=== PATIENT | male | born 1940 | race Caucasian/White ===

== ENCOUNTER → 2017-05-14 | Outpatient (CLI) | payer MEDICARE ==
[~2017-05-14] MED LIST: REGADENOSON 0.4 MG/5 ML SYRINGE ONE
== END | disposition home or self-care (01) ==
LOC: CFH 08:03 → EDSTATUS 10:30
PROVIDERS: ATTEND Surgery
DX: I21.19 ST elevation (STEMI) myocardial infarction involving other coronary artery of inferior wall (principal); I25.9 Chronic ischemic heart disease, unspecified; I25.810 Atherosclerosis of coronary artery bypass graft(s) without angina pectoris
CPT/HCPCS: 78452; 93017; A9502; J2785

== ENCOUNTER → 2017-05-24 | Outpatient (CLI) | payer MEDICARE ==
[~2017-05-24] MED LIST changes: +AMLO5TAB2 PO; +AMLODIPINE PO; +ASCO10004 PO; +ASPI-496 PO; +CHOL20002 PO; +CLOP75TA22 PO; +CRESTOR PO; +ESOM40CA PO; +ESZO3TAB9 PO; +ESZOPICLONE PO; +FLUT1DIS3 INH; +GUAI-44 PO; +IPRA4AER PO; +METO25TA35 PO; +METOPROLOL TARTRATE PO; +MULT-412 PO; +OMEG1CAP56 PO; +OTC LAXATIVE PO; +PLAVIX PO; -REGADENOSON 0.4 MG/5 ML SYRINGE ONE; +ROSU5TAB PO; +[UNRECOGNIZED DRUG - OTHER]; +[UNRECOGNIZED DRUG - OTHER] NS
[2017-05-24 13:44] LABS: BLOOD UREA NITROGEN 8 mg/dL (7-18)
== END | disposition home or self-care (01) ==
LOC: STAR 11:55
PROVIDERS: ATTEND Surgery
DX: Z01.810 Encounter for preprocedural cardiovascular examination (principal); I73.9 Peripheral vascular disease, unspecified
CPT/HCPCS: 36415; 80048; 85025; 93005

== ENCOUNTER 2017-05-28 09:24 | Inpatient (IN) | payer MEDICARE ==
[2017-05-24 12:45] VITALS: BP 148/97
[~2017-05-28] VITALS: Ht 175.3 cm; Wt 86.1 kg
[~2017-05-28 09:24] MED LIST changes: +BACITRACIN 50,000 UNIT ONE; +BUPIVACAINE/PF-EPI 0.5% 1:200K ONE; +HEPARIN 1,000 UNITS/ML, 10ML ONE; -METO25TA35 PO; +PAPAVERINE 30 MG/ML, 2ML ONE; +PROTAMINE SULFATE 10 MG/ML, 5ML ONE; +THROMBIN 20,000 UNIT VIAL TP ONE
[2017-05-28] MEDS ORDERED: CEFAZOLIN PMX 2GM/50ML 50 ML IV ONE (10:15)
[2017-05-28] MEDS ORDERED: LACTATED RINGERS 1,000 ML IV SCH (10:28)
[2017-05-28] MEDS ORDERED: METO25TA35 PO (10:44)
[2017-05-28] MEDS ORDERED: FENTANYL PF 250 MCG/5ML ONE (11:43)
[2017-05-28] MEDS ORDERED: MIDAZOLAM 1 MG/ML, 2ML ONE (11:43)
[2017-05-28] MEDS ORDERED: CEFAZOLIN 1,000 MG ONE (11:58)
[2017-05-28] MEDS ORDERED: ONDANSETRON 2MG/ML, 2ML ONE (11:58)
[2017-05-28] MEDS ORDERED: DEXAMETHASONE 4 MG/ML, 1ML ONE (11:58)
[2017-05-28] MEDS ORDERED: PROPOFOL 10 MG/ML, 20ML ONE (11:58)
[2017-05-28] MEDS ORDERED: VISIPAQUE 270 MG/ML, 50ML BOTTLE ONE (13:12)
[2017-05-28] MEDS ORDERED: ALBUTEROL SULFATE 2.5 MG/3 ML NPPB PRN (13:30)
[2017-05-28] MEDS ORDERED: HYDROcodone/APAP 7.5-325MG/15ML UDC PO PRN (13:30)
[2017-05-28] MEDS ORDERED: EPHEDRINE 50 MG/ML, 1ML IVPush PRN (13:30)
[2017-05-28] MEDS ORDERED: MEPERIDINE/PF 25MG/0.5ML IVPush PRN (13:30)
[2017-05-28] MEDS ORDERED: ACETAMINOPHEN 325 MG TABLET PO PRN ×2 (13:30→17:30)
[2017-05-28] MEDS ORDERED: hydrALAzine 20 MG/ML, 1ML IV PRN ×2 (13:30→17:00)
[2017-05-28] MEDS ORDERED: ALBUTEROL/IPRATROPIUM 2.5MG/0.5MG, 3 ML NPPB PRN (13:30)
[2017-05-28] MEDS ORDERED: ONDANSETRON 2MG/ML, 2ML IVPush PRN (13:30)
[2017-05-28] MEDS ORDERED: METOPROLOL 1 MG/ML, 5ML IV PRN (13:30)
[2017-05-28] MEDS ORDERED: HYDROmorphone 1 MG/ML, 1ML IV PRN (13:30)
[2017-05-28] MEDS ORDERED: OXYcodone 5 MG/5 ML ORAL.SOL UDC PO PRN (13:30)
[2017-05-28] MEDS ORDERED: LABETALOL 5MG/ML, 20ML IV PRN ×2 (13:30→17:00)
[2017-05-28] MEDS ORDERED: PROMETHAZINE 25 MG/ML, 1ML IV PRN (13:30)
[2017-05-28] MEDS ORDERED: FENTANYL PF 100 MCG/2ML IV PRN (13:30)
[2017-05-28] MEDS ORDERED: PROMETHAZINE 25 MG/ML, 1ML ONE (15:40)
[2017-05-28] MEDS ORDERED: HYDROcodone/APAP 7.5-325MG/15ML UDC ONE (15:40)
[2017-05-28 17:01] VITALS: BP 109/69
[2017-05-28] MEDS ORDERED: MORPHINE SULFATE 4 MG/ML, 1ML IVPush PRN (17:30)
[2017-05-28] MEDS ORDERED: ONDANSETRON 2MG/ML, 2ML IV PRN (17:30)
[2017-05-28] MEDS ORDERED: HYDROcodone/APAP 5/325 TABLET PO PRN (17:30)
[2017-05-28] MEDS: METOPROLOL TARTRATE 25 MG TABLET PO SCH (18:00)
[2017-05-28] MEDS: SODIUM CHLORIDE 0.9% 1,000 ML IV SCH (18:43)
[2017-05-28] MEDS: ATORVASTATIN 10 MG TABLET PO SCH (20:09)
[2017-05-28] MEDS: ENOXAPARIN 40 MG/0.4 ML SQ SCH (20:09)
[2017-05-28] MEDS: CEFAZOLIN PMX 2GM/100ML 100 ML IVPB SCH (20:09)
[2017-05-28 20:33] VITALS: BP 116/75
[2017-05-28 23:37] VITALS: BP 118/70
[2017-05-29 01:25] VITALS: BP 115/68
[2017-05-29] MEDS: SODIUM CHLORIDE 0.9% 1,000 ML IV SCH (03:00)
[2017-05-29 03:32] VITALS: BP 115/69
[2017-05-29] MEDS: METOPROLOL TARTRATE 25 MG TABLET PO SCH ×2 (03:58→17:33)
[2017-05-29] MEDS: ASPIRIN 81 MG TABLET EC PO SCH (03:58)
[2017-05-29] MEDS: CEFAZOLIN PMX 2GM/100ML 100 ML IVPB SCH (03:58)
[2017-05-29 05:55] LABS: BLOOD UREA NITROGEN 8 mg/dL (7-18)
[2017-05-29 05:58] LABS: HEMATOCRIT 35.8 % (39.2-51.8)
[2017-05-29 08:13] VITALS: BP 114/57
[2017-05-29] MEDS: MULTIVITAMIN 1 TABLET PO SCH (09:07)
[2017-05-29] MEDS: AMLODIPINE 5 MG TABLET PO SCH (09:07)
[2017-05-29] MEDS: FLUTICASONE/VILANTEROL 100-25MCG/INH INH SCH (09:07)
[2017-05-29] MEDS: OMEGA-3/FISH OIL CAPSULE PO SCH (09:07)
[2017-05-29] MEDS: CLOPIDOGREL 75 MG TABLET PO SCH (09:07)
[2017-05-29] MEDS: ASCORBIC ACID 500 MG TABLET PO SCH (09:08)
[2017-05-29] MEDS: CHOLECALCIFEROL 1,000 UNIT TABLET PO SCH (09:08)
[2017-05-29] MEDS ORDERED: SODIUM CHLORIDE FLUSH 10ML SYR IVF PRN (09:30)
[2017-05-29] MEDS: AMPICILLIN/SULBACTAM 3 GM in SODIUM CHLORIDE 0.9% 100 ML IV SCH ×3 (11:04→21:49)
[2017-05-29 13:41] VITALS: BP 100/70
[2017-05-29] MEDS ORDERED: ALBUTEROL/IPRATROPIUM 2.5MG/0.5MG, 3 ML NPPB SCH (18:30)
[2017-05-29 19:20] VITALS: BP 109/73
[2017-05-29] MEDS: LUNESTA 3 MG HOMEMEDPO SCH ×2 (20:55→22:00)
[2017-05-29] MEDS: ENOXAPARIN 40 MG/0.4 ML SQ SCH (20:55)
[2017-05-29] MEDS: [UNRECOGNIZED DRUG - OTHER] INH SCH (20:55)
[2017-05-29] MEDS: ATORVASTATIN 10 MG TABLET PO SCH (20:55)
[2017-05-30 02:02] VITALS: BP 111/74
[2017-05-30] MEDS: AMPICILLIN/SULBACTAM 3 GM in SODIUM CHLORIDE 0.9% 100 ML IV SCH ×4 (03:47→22:00)
[2017-05-30 05:35] LABS: HEMATOCRIT 34.6 % (39.2-51.8); HEMOGLOBIN 11.4 g/dL (13.7-18.0); WHITE BLOOD COUNT 7.4 x10^3/uL (3.4-10)
[2017-05-30] MEDS: [UNRECOGNIZED DRUG - OTHER] INH SCH ×4 (06:00→20:28)
[2017-05-30 06:23] VITALS: BP 116/76
[2017-05-30] MEDS: METOPROLOL TARTRATE 25 MG TABLET PO SCH ×2 (06:25→18:12)
[2017-05-30] MEDS: ASPIRIN 81 MG TABLET EC PO SCH (06:25)
[2017-05-30 08:00] VITALS: BP 120/74
[2017-05-30] MEDS: OMEGA-3/FISH OIL CAPSULE PO SCH (09:00)
[2017-05-30] MEDS ORDERED: COMBIVENT INH SCH (09:00)
[2017-05-30] MEDS: MULTIVITAMIN 1 TABLET PO SCH (09:12)
[2017-05-30] MEDS: AMLODIPINE 5 MG TABLET PO SCH (09:12)
[2017-05-30] MEDS: FLUTICASONE/VILANTEROL 100-25MCG/INH INH SCH (09:12)
[2017-05-30] MEDS: CLOPIDOGREL 75 MG TABLET PO SCH (09:12)
[2017-05-30] MEDS: ASCORBIC ACID 500 MG TABLET PO SCH (09:13)
[2017-05-30] MEDS: CHOLECALCIFEROL 1,000 UNIT TABLET PO SCH (09:14)
[2017-05-30 12:40] VITALS: BP 118/74
[2017-05-30 19:37] VITALS: BP 138/87
[2017-05-30] MEDS: ATORVASTATIN 10 MG TABLET PO SCH (20:28)
[2017-05-30] MEDS: ENOXAPARIN 40 MG/0.4 ML SQ SCH (20:28)
[2017-05-30] MEDS: LUNESTA 3 MG HOMEMEDPO SCH (23:26)
[2017-05-31 01:43] VITALS: BP 115/76
[2017-05-31] MEDS: AMPICILLIN/SULBACTAM 3 GM in SODIUM CHLORIDE 0.9% 100 ML IV SCH ×2 (03:30→08:43)
[2017-05-31] MEDS: [UNRECOGNIZED DRUG - OTHER] INH SCH (06:00)
[2017-05-31] MEDS: ASPIRIN 81 MG TABLET EC PO SCH (06:18)
[2017-05-31 06:19] VITALS: BP 110/74
[2017-05-31] MEDS: METOPROLOL TARTRATE 25 MG TABLET PO SCH (06:19)
[2017-05-31 08:35] VITALS: BP 106/60
[2017-05-31] MEDS: FLUTICASONE/VILANTEROL 100-25MCG/INH INH SCH (08:39)
[2017-05-31] MEDS: OMEGA-3/FISH OIL CAPSULE PO SCH (08:39)
[2017-05-31] MEDS: AMLODIPINE 5 MG TABLET PO SCH (08:40)
[2017-05-31] MEDS: MULTIVITAMIN 1 TABLET PO SCH (08:40)
[2017-05-31] MEDS: ASCORBIC ACID 500 MG TABLET PO SCH (08:40)
[2017-05-31] MEDS: CHOLECALCIFEROL 1,000 UNIT TABLET PO SCH (08:40)
[2017-05-31] MEDS: CLOPIDOGREL 75 MG TABLET PO SCH (08:40)
[2017-05-31] MEDS ORDERED: HYDR-3240 PO (09:54)
[2017-05-31] MEDS ORDERED: SENN-25 PO (09:54)
== END 2017-05-31 10:24 | disposition home or self-care (01) | DRG 253 ==
LOC: ORIP 09:24 → 4NOR 16:50 → DCLOUNGE 05-31 09:57
PROVIDERS: ADMIT Surgery; ATTEND Surgery
PROC: 04UL0KZ Supplement Left Femoral Artery with Nonautologous Tissue Substitute, Open Approach (ICD-10-PCS; 2017-05-28)
PROC: B41G1ZZ Fluoroscopy of Left Lower Extremity Arteries using Low Osmolar Contrast (ICD-10-PCS; 2017-05-28)
PROC: 047L3Z1 Dilation of Left Femoral Artery using Drug-Coated Balloon, Percutaneous Approach (ICD-10-PCS; 2017-05-28)
PROC: 047N3Z1 Dilation of Left Popliteal Artery using Drug-Coated Balloon, Percutaneous Approach (ICD-10-PCS; 2017-05-28)
PROC: 04CL0ZZ Extirpation of Matter from Left Femoral Artery, Open Approach (ICD-10-PCS; principal; 2017-05-28 11:30)
DX: I70.212 Atherosclerosis of native arteries of extremities with intermittent claudication, left leg (principal); T82.858A Stenosis of other vascular prosthetic devices, implants and grafts, initial encounter; Y83.2 Surgical operation with anastomosis, bypass or graft as the cause of abnormal reaction of the patient, or of later complication, without mention of misadventure at the time of the procedure; E78.5 Hyperlipidemia, unspecified; I10 Essential (primary) hypertension; I25.10 Atherosclerotic heart disease of native coronary artery without angina pectoris; K43.9 Ventral hernia without obstruction or gangrene; I71.4 Abdominal aortic aneurysm, without rupture; Z96.89 Presence of other specified functional implants; Y83.8 Other surgical procedures as the cause of abnormal reaction of the patient, or of later complication, without mention of misadventure at the time of the procedure; Y92.89 Other specified places as the place of occurrence of the external cause; Z87.891 Personal history of nicotine dependence
CPT/HCPCS: 36415; 37224; 75710; 80048; 82040; 85025; C1725; C1729; J0295; J0690; J1100; J1644; J1650; J2250; J2405; J2550; J2704; J2720; J3010; Q9966; C1751; C1760; C1768; C1769; C1894; C2623; J2440; J7030; J7120

== ENCOUNTER 2017-12-07 07:20 | Day surgery (SDC) | payer MEDICARE ==
[~2017-12-07] VITALS: Ht 172.7 cm; Wt 86.0 kg
[~2017-12-07 07:20] MED LIST changes: -BACITRACIN 50,000 UNIT ONE; -BUPIVACAINE/PF-EPI 0.5% 1:200K ONE; -CLOP75TA22 PO; +CLOP75TA52 PO; +ESZO3TAB28 PO; -ESZO3TAB9 PO; +GUAI-106 PO; -GUAI-44 PO; -HEPARIN 1,000 UNITS/ML, 10ML ONE; +HYDR-3240 PO; +METO25TA35 PO; +OMEG-172 PO; -OMEG1CAP56 PO; -PAPAVERINE 30 MG/ML, 2ML ONE; -PROTAMINE SULFATE 10 MG/ML, 5ML ONE; +SENN-25 PO; -THROMBIN 20,000 UNIT VIAL TP ONE; +TIOT4MIS3 PO
[2017-12-07] MEDS ORDERED: LACTATED RINGERS 1,000 ML IV SCH (07:48)
[2017-12-07 08:06] VITALS: BP 122/75
[2017-12-07] MEDS ORDERED: PROPOFOL 10 MG/ML, 20ML ONE (09:33)
[2017-12-07] MEDS ORDERED: MIDAZOLAM 1 MG/ML, 2ML ONE (09:34)
[2017-12-07] MEDS ORDERED: ROCURONIUM 10 MG/ML,10ML ONE (09:34)
[2017-12-07] MEDS ORDERED: FENTANYL PF 250 MCG/5ML ONE (09:34)
[2017-12-07] MEDS ORDERED: ONDANSETRON 2MG/ML, 2ML ONE (09:41)
[2017-12-07] MEDS ORDERED: PHENYLEPHRINE 10 MG/ML ONE (10:07)
[2017-12-07] MEDS ORDERED: DEXAMETHASONE 4 MG/ML, 1ML ONE ×2 (10:09)
[2017-12-07] MEDS ORDERED: NEOSTIGMINE 1 MG/ML, 10ML ONE (10:35)
[2017-12-07] MEDS ORDERED: GLYCOPYRROLATE 0.2MG/1ML, 5ML ONE (10:35)
[2017-12-07] MEDS ORDERED: FENTANYL PF 100 MCG/2ML IV PRN (11:00)
[2017-12-07] MEDS ORDERED: MEPERIDINE/PF 25MG/0.5ML IVPush PRN (11:00)
[2017-12-07] MEDS ORDERED: OXYcodone 5 MG/5 ML ORAL.SOL UDC PO PRN (11:00)
[2017-12-07] MEDS ORDERED: ACETAMINOPHEN 325 MG TABLET PO PRN (11:00)
[2017-12-07] MEDS ORDERED: HYDROcodone/APAP 7.5-325MG/15ML UDC PO PRN (11:00)
[2017-12-07] MEDS ORDERED: morphine SULFATE 10 MG/ML, 1ML IV PRN (11:00)
[2017-12-07] MEDS ORDERED: ONDANSETRON 2MG/ML, 2ML IVPush PRN (11:00)
== END 2017-12-07 13:30 ==
LOC: OUT 07:20
PROVIDERS: ATTEND Internal Medicine
DX: C34.12 Malignant neoplasm of upper lobe, left bronchus or lung (principal); J44.9 Chronic obstructive pulmonary disease, unspecified; Z87.39 Personal history of other diseases of the musculoskeletal system and connective tissue; I25.2 Old myocardial infarction
CPT/HCPCS: 31625; 31627; 31629; 71045; 76001; 88112; 88172; 88173; 88305; 93005; A4648; J1100; J2250; J2370; J2405; J2704; J2710; J3010; J7120; 31623; 31628; J3490

== ENCOUNTER → 2017-12-12 | Outpatient (CLI) | payer MEDICARE | END | disposition home or self-care (01) | LOC: PETCFH 07:27 | PROVIDERS: ATTEND Nurse Practitioner | DX: R91.8 Other nonspecific abnormal finding of lung field (principal); C34.90 Malignant neoplasm of unspecified part of unspecified bronchus or lung | CPT/HCPCS: 70553; 78815; A9552 ==

== ENCOUNTER → 2017-12-19 | Outpatient (CLI) | payer MEDICARE | LOC: ROC 08:33 | PROVIDERS: ATTEND Radiology Radiation Oncology | DX: C34.12 Malignant neoplasm of upper lobe, left bronchus or lung (principal); I10 Essential (primary) hypertension; J44.9 Chronic obstructive pulmonary disease, unspecified; Z86.79 Personal history of other diseases of the circulatory system; Z87.891 Personal history of nicotine dependence | CPT/HCPCS: 99214; G0463 ==

== ENCOUNTER → 2018-04-08 | Outpatient (CLI) | payer MEDICARE | END | disposition home or self-care (01) | LOC: CFH 11:56 | PROVIDERS: ATTEND Radiology Radiation Oncology | DX: C34.12 Malignant neoplasm of upper lobe, left bronchus or lung (principal) | CPT/HCPCS: 71250 ==

== ENCOUNTER → 2018-04-10 | Outpatient (CLI) | payer MEDICARE, OTHER | END | disposition home or self-care (01) | LOC: ROC 09:22 | PROVIDERS: ATTEND Radiology Radiation Oncology | DX: C34.12 Malignant neoplasm of upper lobe, left bronchus or lung (principal) | CPT/HCPCS: G0463 ==

== ENCOUNTER → 2018-04-25 | Outpatient (CLI) | payer MEDICARE | END | disposition home or self-care (01) | LOC: CVU 14:15 | PROVIDERS: ATTEND Surgery | DX: I70.201 Unspecified atherosclerosis of native arteries of extremities, right leg (principal); C34.91 Malignant neoplasm of unspecified part of right bronchus or lung; E78.5 Hyperlipidemia, unspecified; I10 Essential (primary) hypertension; I77.1 Stricture of artery; I70.302 Unspecified atherosclerosis of unspecified type of bypass graft(s) of the extremities, left leg | CPT/HCPCS: 93922; 93925 ==

== ENCOUNTER → 2018-06-28 | Outpatient (CLI) | payer MEDICARE ==
[~2018-06-28] MED LIST changes: -AMLO5TAB2 PO; +AMLO5TAB7 PO; -CHOL20002 PO; +CHOL200052 PO; +OMNIPAQUE 350 MG/ML, 100ML BOTTLE ONE
== END | disposition home or self-care (01) ==
LOC: CFH 09:24
PROVIDERS: ATTEND Internal Medicine Hematology & Oncology
DX: J43.8 Other emphysema (principal); J47.9 Bronchiectasis, uncomplicated; Z95.1 Presence of aortocoronary bypass graft
CPT/HCPCS: 71260; 74177; Q9967

== ENCOUNTER → 2018-07-04 | Outpatient (CLI) | payer MEDICARE ==
[~2018-07-04] MED LIST changes: -OMNIPAQUE 350 MG/ML, 100ML BOTTLE ONE
== END | disposition home or self-care (01) ==
LOC: ROC 08:42
PROVIDERS: ATTEND Internal Medicine Geriatric Medicine
DX: C34.12 Malignant neoplasm of upper lobe, left bronchus or lung (principal); J44.9 Chronic obstructive pulmonary disease, unspecified; Z87.891 Personal history of nicotine dependence
CPT/HCPCS: G0463

== ENCOUNTER → 2018-10-28 | Outpatient (CLI) | payer MEDICARE ==
[~2018-10-28] MED LIST changes: +AMLO-150 PO; -AMLO5TAB7 PO; +OMNIPAQUE 350 MG/ML, 100ML BOTTLE ONE
== END | disposition home or self-care (01) ==
LOC: CFH 11:56
PROVIDERS: ATTEND Internal Medicine Hematology & Oncology
DX: C34.12 Malignant neoplasm of upper lobe, left bronchus or lung (principal); J94.8 Other specified pleural conditions; J98.4 Other disorders of lung; J98.19 Other pulmonary collapse; J84.10 Pulmonary fibrosis, unspecified; J98.11 Atelectasis; N13.30 Unspecified hydronephrosis; R59.9 Enlarged lymph nodes, unspecified; K57.30 Diverticulosis of large intestine without perforation or abscess without bleeding; Z77.090 Contact with and (suspected) exposure to asbestos
CPT/HCPCS: 71260; 74177; 82565; Q9967

== ENCOUNTER → 2018-11-08 | Outpatient (CLI) | payer MEDICARE ==
[~2018-11-08] MED LIST changes: -OMNIPAQUE 350 MG/ML, 100ML BOTTLE ONE
== END | disposition home or self-care (01) ==
LOC: ROC 07:19
PROVIDERS: ATTEND Radiology Radiation Oncology
DX: Z08 Encounter for follow-up examination after completed treatment for malignant neoplasm (principal); C34.12 Malignant neoplasm of upper lobe, left bronchus or lung
CPT/HCPCS: G0463

== ENCOUNTER → 2019-03-04 | Outpatient (CLI) | payer MEDICARE ==
[~2019-03-04] MED LIST changes: +OMNIPAQUE 350 MG/ML, 100ML BOTTLE ONE
== END | disposition home or self-care (01) ==
LOC: CFH 09:27
PROVIDERS: ATTEND Radiology Radiation Oncology
DX: C34.90 Malignant neoplasm of unspecified part of unspecified bronchus or lung (principal); K76.89 Other specified diseases of liver; J98.11 Atelectasis; R91.1 Solitary pulmonary nodule
CPT/HCPCS: 71260; 74177; 82565; Q9967

== ENCOUNTER 2019-03-12 13:41 | Outpatient (CLI) | payer MEDICARE ==
[~2019-03-12 13:41] MED LIST changes: -OMNIPAQUE 350 MG/ML, 100ML BOTTLE ONE
== END 2019-03-12 23:59 | disposition home or self-care (01) ==
LOC: ROC 13:41
PROVIDERS: ATTEND Radiology Radiation Oncology
DX: C34.12 Malignant neoplasm of upper lobe, left bronchus or lung (principal)
CPT/HCPCS: G0463